=== PATIENT | male | born 1955 | race African-American/Black ===

== ENCOUNTER 2023-09-20 07:24 | Emergency (ER) | payer BC, OTHER ==
[~2023-09-20] VITALS: Ht 167.6 cm; Wt 54.5 kg
[2023-09-20 08:05] VITALS: BP 128/86; PULSE 79; RESP 17; TEMP 97.4; O2SAT 99
[2023-09-20] MEDS: HYDROcodone-ACET 5/325MG TAB PO ONE (08:14)
[2023-09-20] MEDS ORDERED: PRED20TA2 PO (09:29)
[2023-09-20] MEDS ORDERED: TRAM-626 PO (09:29)
== END 2023-09-20 09:37 | disposition home or self-care (01) ==
LOC: ER 07:24
DX: M51.16 Intervertebral disc disorders with radiculopathy, lumbar region (principal); I11.0 Hypertensive heart disease with heart failure; I50.9 Heart failure, unspecified; J44.9 Chronic obstructive pulmonary disease, unspecified
CPT/HCPCS: 72100

== ENCOUNTER 2023-09-25 08:10 | Inpatient (IN) | payer BC ==
[~2023-09-25] VITALS: Ht 167.6 cm; Wt 65.7 kg
[~2023-09-25 08:10] MED LIST: PRED20TA2 PO; TRAM-626 PO
[2023-09-25 09:05] LABS: Basophils # (auto) 0.1 10 ^3/uL (0-0.2); Basophils % (auto) 0.8 % (0.0-2.0); Eosinophils # (auto) 0.1 10 ^3/uL (0-0.8); Eosinophils % (auto) 1.5 % (0.0-7.0); Hematocrit 37.5 % (41.0-53.0); Hemoglobin 12.2 g/dL (13.5-17.5); Lymphocytes # (auto) 1.6 10 ^3/uL (0.4-5.4); Lymphocytes % (auto) 21.9 % (10.0-50.0); Mean Corpuscular Hemoglobin 27.5 pg (28.0-32.0); Mean Corpuscular Hgb Conc. 32.6 g/dL (32.0-36.0); Mean Corpuscular Volume 84.4 fL (80.0-100.0); Monocytes # (auto) 0.5 10 ^3/uL (0-1.3); Monocytes % (auto) 7.2 % (0.0-12.0); Neutrophils # (auto) 4.8 10 ^3/uL (1.6-8.6); Neutrophils % (auto) 68.6 % (37.0-80.0); Red Blood Cells 4.44 10^6/uL (4.5-5.90); White Blood Cell 7.1 10^3/uL (4.4-10.8)
[2023-09-25 09:08] LABS: Red Cell Distribution Width 20.9 % (11.8-14.3)
[2023-09-25 09:19] LABS: INR 1.03 (0.9-1.15); Partial Thromboplastin Time 27.3 SEC (24.5-34.5); Prothrombin Time 10.9 sec (9.3-11.8)
[2023-09-25 09:21] LABS: Alanine Aminotransferase 20 U/L (7-40); Albumin 3.9 g/dL (3.2-4.8); Alkaline Phosphatase 83 U/L (46-116); Anion Gap 3 (5-15); Aspartate Aminotransferase 32 U/L (13-40); BUN/Creatinine Ratio 20.6 (10.0-20.0); Blood Urea Nitrogen 14 mg/dL (9-23); Calcium 9.3 mg/dL (8.5-10.1); Carbon Dioxide 26 mmol/L (20-30); Chloride 113 mmol/L (98-107); Glucose 93 mg/dL (74-106); Potassium 4.2 mmol/L (3.5-5.1); Sodium 142 mmol/L (136-145)
[2023-09-25 09:22] LABS: Bilirubin, Total 0.4 mg/dL (0.2-1.0); Total Protein 6.5 g/dL (5.7-8.2)
[2023-09-25] MEDS: IBUPROFEN 600 MG TAB PO ONE (09:41)
[2023-09-25 10:06] LABS: Urine Bacteria None Seen /hpf (None Seen)
[2023-09-25 10:30] LABS: Urine Blood Negative /uL (Negative); Urine Clarity Clear (Clear); Urine Color Light-Yellow (Yellow); Urine Mucus FEW (None Seen); Urine Protein, UAD TRACE (Negative); Urine Specific Gravity 1.021 (1.001-1.035); Urine Urobilinogen Normal (Negative); Urine WBC 1 /hpf (0 - 3)
[2023-09-25] MEDS: IOHEXOL 350 MG/ML 100ML IJ ONE (13:08)
[2023-09-25] MEDS ORDERED: ALBUTEROL SULF 2.5 MG/0.5ML(0.5%) NEB SOLN NEB PRN (13:15)
[2023-09-25] MEDS ORDERED: MORPHINE SULFATE INJ 2 MG/ml SYRG IV PRN ×2 (13:15)
[2023-09-25] MEDS ORDERED: IPRATROPIUM BROM 0.5 MG/2.5ML INH SOL NEB PRN (13:15)
[2023-09-25] MEDS ORDERED: ACETAMINOPHEN 325 MG TAB PO PRN (13:15)
[2023-09-25] MEDS ORDERED: NITROGLYCERIN 0.4 MG SL TAB SL PRN (13:15)
[2023-09-25 13:30] VITALS: BP 158/80; PULSE 93; RESP 18; TEMP 98; O2SAT 100
[2023-09-25] MEDS ORDERED: hydrALAZINE HCL 20 MG/ML VL IV PRN (13:30)
[2023-09-25 13:38] VITALS: O2SAT 100
[2023-09-25 14:28] LABS: Amphetamine Screen, Urine Neg (NEGATIVE); Barbiturate Scree,Urine Neg (NEGATIVE); Benzodiazephine Screen, Urine Neg (NEGATIVE); Cannabinoid Screen, Urine Neg (NEGATIVE); Cocaine Screen, Urine Neg (NEGATIVE); Opiate Scree,Urine Neg (NEGATIVE); Phencyclidine Screen, Urine Neg (NEGATIVE)
[2023-09-25 15:21] LABS: LDL Cholesterol 50 mg/dL (< 100); Triglycerides 57 mg/dL (< 150)
[2023-09-25 15:23] LABS: Cholesterol 120 mg/dL (< 200); HDL Cholesterol 52 mg/dL (40-59)
[2023-09-25] MEDS: ALBUTEROL SULF 2.5 MG/0.5ML(0.5%) NEB SOLN NEB SCH (18:01)
[2023-09-25 18:02] VITALS: PULSE 64; RESP 20; O2SAT 100
[2023-09-25] MEDS: IPRATROPIUM BROM 0.5 MG/2.5ML INH SOL NEB SCH (18:02)
[2023-09-25 18:12] VITALS: PULSE 62; RESP 20; O2SAT 100
[2023-09-25] MEDS: FUROSEMIDE 40 MG/4 ML VIAL IV ONE (20:16)
[2023-09-25] MEDS: traMADol HCL 50 MG TAB PO SCH (20:31)
[2023-09-25] MEDS: FUROSEMIDE 40 MG/4 ML VIAL IV SCH (20:35)
[2023-09-26] VITALS (12 sets, daily range): BP systolic 92–96; BP diastolic 57–68; PULSE 77–98; RESP 14–68; TEMP 98–98.3; O2SAT 96–100
[2023-09-26] MEDS: CARVEDILOL 3.125 MG TAB PO SCH (00:20)
[2023-09-26 06:34] LABS: Basophils # (auto) 0.1 10 ^3/uL (0-0.2); Basophils % (auto) 0.8 % (0.0-2.0); Eosinophils # (auto) 0.3 10 ^3/uL (0-0.8); Eosinophils % (auto) 3.9 % (0.0-7.0); Hematocrit 35.7 % (41.0-53.0); Hemoglobin 11.7 g/dL (13.5-17.5); Lymphocytes # (auto) 1.9 10 ^3/uL (0.4-5.4); Lymphocytes % (auto) 29.5 % (10.0-50.0); Mean Corpuscular Hemoglobin 27.8 pg (28.0-32.0); Mean Corpuscular Hgb Conc. 32.7 g/dL (32.0-36.0); Monocytes # (auto) 0.6 10 ^3/uL (0-1.3); Monocytes % (auto) 9.6 % (0.0-12.0); Neutrophils # (auto) 3.7 10 ^3/uL (1.6-8.6); Neutrophils % (auto) 56.2 % (37.0-80.0); White Blood Cell 6.6 10^3/uL (4.4-10.8)
[2023-09-26 06:42] LABS: Alanine Aminotransferase 15 U/L (7-40); Albumin 3.5 g/dL (3.2-4.8); Alkaline Phosphatase 76 U/L (46-116); Anion Gap 7 (5-15); Aspartate Aminotransferase 21 U/L (13-40); BUN/Creatinine Ratio 24.1 (10.0-20.0); Bilirubin, Total 0.3 mg/dL (0.2-1.0); Blood Urea Nitrogen 20 mg/dL (9-23); Calcium 9.3 mg/dL (8.7-10.4); Carbon Dioxide 25 mmol/L (20-30); Chloride 107 mmol/L (98-107); Glucose 99 mg/dL (74-106); Potassium 3.9 mmol/L (3.5-5.1); Sodium 139 mmol/L (136-145); Total Protein 5.7 g/dL (5.7-8.2)
[2023-09-26] MEDS: NICOTINE 7MG/24HR TOPICAL PATCH TD SCH (10:00)
[2023-09-26] MEDS: LISINOPRIL 5 MG TAB PO SCH (10:14)
[2023-09-26] MEDS: ENOXAPARIN SOD 40 MG/0.4 ML SYRINGE SC SCH (10:15)
[2023-09-26] MEDS: HYDROcodone-ACET 5/325MG TAB PO PRN (10:43)
[2023-09-26] MEDS: METOPROLOL TARTRATE 25 MG TAB PO SCH (22:00)
[2023-09-27] VITALS (16 sets, daily range): BP systolic 81–103; BP diastolic 45–71; PULSE 45–95; RESP 16–20; TEMP 96.5–98.6; O2SAT 91–100
[2023-09-27] MEDS: LISINOPRIL 5 MG TAB PO SCH (10:00)
[2023-09-27] MEDS: EMPAGLIFLOZIN 10 MG TAB PO SCH (16:06)
[2023-09-28] VITALS (17 sets, daily range): BP systolic 93–110; BP diastolic 37–69; PULSE 63–89; RESP 16–22; TEMP 97.6–98.7; O2SAT 93–100
[2023-09-28 09:00] LABS: Basophils # (auto) 0 10 ^3/uL (0-0.2); Basophils % (auto) 0.6 % (0.0-2.0); Eosinophils # (auto) 0.2 10 ^3/uL (0-0.8); Eosinophils % (auto) 2.6 % (0.0-7.0); Hematocrit 38.7 % (41.0-53.0); Hemoglobin 12.6 g/dL (13.5-17.5); Lymphocytes # (auto) 1.6 10 ^3/uL (0.4-5.4); Lymphocytes % (auto) 25.7 % (10.0-50.0); Mean Corpuscular Hemoglobin 27.6 pg (28.0-32.0); Mean Corpuscular Hgb Conc. 32.6 g/dL (32.0-36.0); Mean Corpuscular Volume 84.5 fL (80.0-100.0); Monocytes # (auto) 0.4 10 ^3/uL (0-1.3); Neutrophils % (auto) 64.1 % (37.0-80.0); Nucleated Red Blood Cells % 0.1 %; Red Blood Cells 4.58 10^6/uL (4.5-5.90); White Blood Cell 6.2 10^3/uL (4.4-10.8)
[2023-09-28 09:12] LABS: Red Cell Distribution Width 20.3 % (11.8-14.3)
[2023-09-28] MEDS: MUPIROCIN 2% OINT 15gm or 22gm FOR MRSA NARES EACHNOSTRI SCH (22:08)
[2023-09-28] MEDS: QUEtiapine FUMARATE 25 MG TAB PO SCH (22:09)
[2023-09-29] VITALS (15 sets, daily range): BP systolic 99–112; BP diastolic 36–67; PULSE 42–95; RESP 14–22; TEMP 97.8–98.4; O2SAT 94–100
[2023-09-29] MEDS: SERTRALINE HCL 50 MG TAB PO SCH (08:37)
[2023-09-29] MEDS: ACETAMINOPHEN 325 MG TAB PO PRN (13:00)
[2023-09-30] VITALS (14 sets, daily range): BP systolic 99–122; BP diastolic 55–79; PULSE 43–92; RESP 16–20; TEMP 97.4–98; O2SAT 95–100
[2023-09-30] MEDS: TAMSULOSIN HYDROCHLORIDE 0.4 MG CAP PO ONE (08:59)
[2023-09-30] MEDS: TAMSULOSIN HYDROCHLORIDE 0.4 MG CAP PO SCH (18:44)
[2023-10-01] VITALS (20 sets, daily range): BP systolic 100–116; BP diastolic 41–72; PULSE 38–92; RESP 14–21; TEMP 97.4–98.4; O2SAT 93–100
[2023-10-02] VITALS (11 sets, daily range): BP systolic 104–120; BP diastolic 53–60; PULSE 42–103; RESP 16–19; TEMP 97.9–98.3; O2SAT 90–100
== END 2023-10-02 18:38 | disposition hospice, inpatient (51) | DRG 291 ==
LOC: ER 08:10 → TELE 13:23 → TELE-CENTR 13:23
PROVIDERS: ADMIT Registered Nurse; ATTEND Family Medicine
DX: I11.0 Hypertensive heart disease with heart failure (principal); I50.23 Acute on chronic systolic (congestive) heart failure; J96.21 Acute and chronic respiratory failure with hypoxia; J44.1 Chronic obstructive pulmonary disease with (acute) exacerbation; Z59.00 Homelessness unspecified; F33.3 Major depressive disorder, recurrent, severe with psychotic symptoms; I42.0 Dilated cardiomyopathy; G89.4 Chronic pain syndrome; K21.9 Gastro-esophageal reflux disease without esophagitis; F17.210 Nicotine dependence, cigarettes, uncomplicated; N40.0 Benign prostatic hyperplasia without lower urinary tract symptoms; Z86.73 Personal history of transient ischemic attack (TIA), and cerebral infarction without residual deficits; Z79.899 Other long term (current) drug therapy; Z82.5 Family history of asthma and other chronic lower respiratory diseases
CPT/HCPCS: 36415; 36600; 71045; 71275; 80053; 80061; 80307; 81001; 82805; 83605; 83735; 83880; 84484; 85025; 85379; 85610; 85730; 87040; 87081; 93005; 93306; 93970; 94640; 97110; 97116; 97530; G0378